=== PATIENT | male | born 1985 | race Caucasian/White ===

== ENCOUNTER 2019-06-19 03:46 | Emergency (ER) | payer OTHER ==
[~2019-06-19] VITALS: Ht 175.3 cm; Wt 67.0 kg
[~2019-06-19 03:46] MED LIST: HYDR-4011 PO; NAPR-985 PO
[2019-06-19 03:50] VITALS: BP 122/74; PULSE 60; RESP 16; Ht 175.3 cm; Wt 67.0 kg
[2019-06-19] MEDS ORDERED: HYDROCODONE/APAP (5/325) TAB PO ONE (04:30)
== END 2019-06-19 05:32 | disposition home or self-care (01) ==
LOC: FTE 03:46
DX: S52.602A Unspecified fracture of lower end of left ulna, initial encounter for closed fracture (principal); Y08.09XA Assault by strike by other specified type of sport equipment, initial encounter
CPT/HCPCS: 29125; 73090; Z7502; Z7610

== ENCOUNTER 2019-06-21 14:10 | Emergency (ER) | payer SELFPAY ==
[~2019-06-21] VITALS: Ht 172.7 cm; Wt 66.0 kg
[2019-06-21 14:20] VITALS: BP 129/80; PULSE 82; RESP 18; Ht 172.7 cm; Wt 66.0 kg
== END 2019-06-21 15:13 | disposition left against medical advice (07) ==
LOC: FTE 14:10
DX: Z53.21 Procedure and treatment not carried out due to patient leaving prior to being seen by health care provider (principal)